=== PATIENT | female | born 1990 | race Caucasian/White ===

== ENCOUNTER 2025-03-23 13:55 | Emergency (ER) | payer OTHER, SELFPAY ==
[2025-03-23 13:56] VITALS: BP 186/105; PULSE 104; RESP 18; TEMP 37.2; O2SAT 100
[2025-03-23 13:58] VITALS: BMI 40.1
--- NOTE | 2025-03-23 15:09 | EDS_ITS ---
HPI History of Present Illness Chief Complaint: Abd Pain [facility] Medical History (Updated 03/23/25 @ 14:58 by Ambar Patel) Non-smoker Migraines Allergy/AdvReac Type Severity Reaction Status Date / Time No Known Allergies Allergy Verified 03/23/25 13:56 Social History Smoking Status: Never smoker EXAM Physical Exam Const Vital Signs: 03/23/25 13:56 03/23/25 15:55 Temperature 98.9 F Temperature Source Oral Pulse Rate 104 H 104 H Respiratory Rate 18 19 H Blood Pressure 186/105 H 152/95 H Blood Pressure Mean 132 114 Pulse Ox 100 98 Oxygen Delivery Method Room Air Room Air MDM MDM MDM Narrative Medical decision making narrative: HISTORY OF PRESENT ILLNESS: Chief complaint: Pelvic pain 34-year-old female here with left-sided pelvic pain. Past medical history of obesity, endometriosis, hematosalpinx,, GERD. 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 Villa. She states she typically have some abdominal discomfort however 2 hours ago she had sharp left lower quadrant abdominal pain. Her pain is not associated with fever, vomiting, changes in bowel or bladder habits. Denies any falls or trauma. Denies any prior abdominal surgeries. She is not concerned that she is . She denies any vaginal bleeding or discharge REVIEW OF SYSTEMS: Pertinent positives: Pelvic pain Pertinent negatives: Nausea, vomiting, fever PHYSICAL EXAM: Nursing triage notes reviewed, Vital signs reviewed Constitutional: please see mdm HENT: MMM Eyes: Pupils equal round and reactive to light, Extraocular muscles intact Neck: No stridor, no JVD, full neck ROM Lungs: Clear to auscultation, No wheezing or rales. No increased work of breathing, no conversational dyspnea, no accessory muscle use, no nasal flaring. No respiratory distress noted Heart: Regular rate and rhythm, No murmurs, No rubs and No gallops, 2+ distal pulses (radial, femoral, posterior tibial) in all extremities Abdomen: Soft, left lower quadrant TTP but no rigidity, rebound or guarding, no obvious peritoneal signs, no palpable pulsatile abdominal masses, no auscultated abdominal bruit : No CVAT Extremities: No edema Neuro: No new focal neurological deficits, cranial nerves II through XII intact, 5/5 strength in all present extremities. Intact sensation to light touch in all present extremities, 2+ reflexes bilateral patella tendons. Skin: No rash or lesions noted MEDICAL DECISION MAKING: Chief Complaint: please see HPI External records reviewed: Reviewed prior imaging studies: No recent advanced imaging of the abdomen or pelvis noted in [facility]. I reviewed [facility] as well. Per clinic send patient has a laparoscopic surgery for endometriosis and removal of fallopian tube we discussed on April [facility]. Reviewed MRI from October 2024 which showed the following MRI 11/05/2024 IMPRESSION: 1. Oval hemorrhagic lesion with incomplete septations in the left adnexa adjacent to the left ovary, most likely representing a hematosalpinx or less likely an endometrioma. 2. No MRI findings of deep pelvic endometriosis. Factors affecting care: Endometriosis, fallopian tube mass Social determinants of health: none History obtained from others: the patient's mother Consults: none [facility] Narrative: The patient was initially hypertensive with a blood pressure 186/105, tachycardic with a pulse of 104, she was afebrile and saturating 100% on room air. Exam with left lower quadrant TTP but no peritoneal signs. No CVA tenderness. I considered the following differential diagnosis: AAA, small bowel obstruction, abdominal perforation, appendicitis, pancreatitis, hepatobiliary pathology (acute cholecystitis), mesenteric ischemia, pathology (ie nephrolithiasis, pyelonephritis). I obtained a broad lab and imaging work to further determine if the patient was suffering from a life-threatening etiology. Initially treated patient IV fluids, Toradol and Zofran ALL IMAGES (IF OBTAINED) HAVE BEEN PERSONALLY REVIEWED AND INTERPRETED BY MYSELF. CBC with leukocytosis suggestive of systemic summation, no anemia thrombocytopenia noted BMP without evidence of significant electrolyte abnormalities, no anion gap, no acute kidney injury. Lactate is wnl indicating no end-organ hypoperfusion and/or hypoxia. Lipase is wnl indicating no pancreatic inflammation. Urinalysis shows no evidence of urinary inflammation suggestive of UTI Urine CT scan ab pelvis shows no acute process Pelvic ultrasound shows no ovarian torsion but shows known mass Repeat abdominal exam did not reveal any peritoneal signs. The patient is appropriate discharge home. Her symptoms are likely related to known pelvic mass. She has surgery scheduled on April 03. Offered home pain medication to the patient, home nausea medication to the patient. Instructed patient to call her [facility] the next available appointment. Strict return precautions were discussed. The patient and/or family, caregivers express understanding. The patient and/or family, caregivers agrees with the plan. Shared decision making: I will have a discussion with the patient and or visitors regarding risk/benefits of further testing or admission. They will be made aware of of the risk/benefits inherent in this decision they will be given the opportunity to voice understanding. Total critical care time today provided was at least 0 minutes. This excludes separately billable procedures. Critical care time (if documented) is secondary to the patient having high probability of clinically significant/life threatening deterioration in the patient's condition which required my urgent intervention. Impression: 1. Acute abdominal pain 2. Fallopian tube mass 3. History of endometriosis Dispo: Discharge This note was generated with [employer] dictation software. It may contain incorrect words, spelling, and punctuation that were not noted in review of the chart prior to signing. Lab Data Labs: Laboratory Results - last 24 hr 03/23/25 03/23/25 14:50 15:40 WBC 13.5 H RBC 5.05 Hgb 14.5 Hct 42.0 MCV 83.2 MCH 28.7 MCHC 34.5 RDW Std Deviation 36.2 RDW Coeff of Mari 11.9 Plt Count 328 MPV 9.3 Immature Gran % (Auto) 0.400 Neut % (Auto) 81.8 H Lymph % (Auto) 12.9 L Morton % (Auto) 4.1 Eos % (Auto) 0.4 Baso % (Auto) 0.4 Absolute Neuts (auto) 11.1 H Absolute Lymphs (auto) 1.74 Nucleated RBC % 0 Sodium 137 Potassium 3.6 Chloride 101 Carbon Dioxide 24.5 Anion Gap 12 BUN 11 Creatinine 0.70 Estim Creat Clear Calc 145.73 Est GFR (MDRD) Non-Af 116 BUN/Creatinine Ratio 16.1 Glucose 134 H Calcium 9.6 Total Bilirubin 0.41 AST 27 ALT 45 H Alkaline Phosphatase 75 Total Protein 8.0 Albumin 4.5 Globulin 3.5 Albumin/Globulin Ratio 1.3 Lipase 27 Urine Color Danelle Urine Clarity Sl. Cloudy Urine pH 5.0 Ur Specific Jackson 1.030 Urine Protein 15 H Urine Glucose (UA) Normal Urine Ketones 5 H Urine Occult Blood 10 H Urine Nitrite Negative Urine Bilirubin Negative Urine Urobilinogen Normal Ur Leukocyte Esterase 25 H Urine RBC 5-10 SEEN Urine WBC 10-25 SEEN Ur Squamous Epith Cells 50-100 SEEN Urine Bacteria 3+ Urine Mucus 3+ Urine Test Negative Radiography Diagnostic Testing: Clinical Impression(s) from Imaging Studies Pelvic/Transvag US 03/23/25 15:22 IMPRESSION: Dilated left fallopian tube likely related to known left fallopian tube mass. Large left ovarian cyst measuring 4.8 cm although this structure may be a fallopian tube cystic mass or segmental hydrosalpinx. Findings are difficult to delineate on this sonogram. The right ovary is within normal limits. Debris noted within the urinary bladder. Reading Location: [facility] Abdomen/Pelvis CT 03/23/25 16:30 IMPRESSION: No acute intra-abdominal process. Multicystic left ovary measuring up to 5.4 x 4.8 cm. Reading Location: [facility] Discharge Plan Triage Chief Complaint: Abd Pain ED Provider: Marc Murillo Dx/Rx/DC Orders Primary Care Provider: Eunice Alarcon Referrals: Eunice Alarcon MD [Primary Care Provider, Internal Medicine] Print Language: Beninese
--- NOTE | 2025-03-23 15:22 | US_ITS ---
PROCEDURE: PELVIC W/ TRANSVAGINAL 03/23/2025 REASON FOR EXAM: LEFT LOWER QUADRANT ABDOMINAL PAIN TECHNIQUE: Procedure Code: [id number] Modality: US Procedure: PELVIC W/ TRANSVAGINAL COMPARISON: None. FINDINGS: Uterus measures 9.5.5 x 4.0 cm. It is anteverted position. No uterine fibroids are noted. Endometrial stripe measures 6 mm. It is hyperechoic. Right ovary measures 2.3 x 2.1 x 2.1 cm and left ovary measures 3.9 x 3.2 x 2.7 cm. There is normal bilateral symmetrical blood flow within bilateral ovaries. Cysts within the left ovary measuring 4.8 x 4.4 x 3.2 cm. Dilated left fallopian tube likely related to known left fallopian tube mass. No significant free fluid within the cul-de-sac. Debris seen within the urinary bladder US/Pelvic w/ Transvaginal IMPRESSION: Dilated left fallopian tube likely related to known left fallopian tube mass. Large left ovarian cyst measuring 4.8 cm although this structure may be a fallopian tube cystic mass or segmental hydrosalpinx. Findings are difficult to delineate on this sonogram. The right ovary is within normal limits. Debris noted within the urinary bladder. Reading Location: [id number]
[2025-03-23] MEDS: 0.9% Normal Saline (500mL Bag) 500 ML 1000 ML IV (15:47)
[2025-03-23 15:53] LABS: Hematocrit 42.0 % (37-47); Hemoglobin 14.5 g/dL (12.0-15.0); Immature Granulocytes Count 0.060 X10^3/uL (0.0-0.0); Mean Corp Hgb Conc 34.5 g/dL (32-36); Mean Corpuscular Volume 83.2 fL (81-99); Mean Platelet Vol. 9.3 fl (6.2-12.0); NRBC Flagged by Analyzer 0 % (0-5); Platelet Count 328 K/mm3 (150-450); RBC Distribution Width CV 11.9 % (11.6-14.6); RBC Distribution Width SD 36.2 fl (35.1-43.9); Red Blood Count 5.05 M/mm3 (4.2-5.4); White Blood Count 13.5 K/mm3 (4.4-11.0)
[2025-03-23 15:54] LABS: Color, Urine Amber (Yellow); Glucose, Dipstick Normal (Normal); Ketone-Dipstick 5 mg/dl (Negative); Leukocyte Esterase-Dipstick 25 /ul (Negative); Nitrite-Dipstick Negative (Negative); Occult Blood-Urine 10 /ul (Negative); Protein-Dipstick 15 mg/dl (Negative); Specific Gravity, Urine 1.030 (1.002-1.030); Urine Bilirubin Dipstick Negative (Negative)
[2025-03-23 15:55] VITALS: BP 152/95; PULSE 104; RESP 19; O2SAT 98
[2025-03-23 16:11] LABS: Internal QC Validated? YES +Cl - CLEAR BKGD; Pregnancy, Urine Negative Negative
[2025-03-23 16:17] LABS: AST(SGOT) 27 U/L (<=31); Alanine Aminotransfer ALT/SGPT 45 U/L (<=34); Albumin, Serum 4.5 g/dL (3.5-5.0); Alkaline Phosphatase 75 U/L (35-104); Anion Gap 12 (7-18); BUN 11 mg/dL (4-19); BUN/Creat Ratio 16.1 RATIO (10-20); Calcium,Total 9.6 mg/dL (7.6-11.0); Carbon Dioxide 24.5 mmol/L (20.0-29.0); Chloride 101 mmol/L (96-106); Estimated Creatinine Clearance 145.73 ml/min (50-250); Globulin 3.5 g/dL (2.2-4.2); Glucose 134 mg/dL (70-99); Lipase 27 U/L (13-75); Potassium 3.6 mmol/L (3.5-5.1)
--- NOTE | 2025-03-23 16:30 | CT_ITS ---
PROCEDURE: ABDOMEN/PELVIS W IV CONT ONLY 03/23/2025 REASON FOR EXAM: LEFT LOWER QUADRANT ABDOMINAL PAIN TECHNIQUE: Procedure Code: [id number] Modality: CT Procedure: ABDOMEN/PELVIS W IV CONT ONLY Coronal and Sagittal reconstruction series were provided. CONTRAST: 100 mL of Isovue 370 One or more dose reduction techniques were used (e.g., Automated exposure control, adjustment of the mA and/or kV according to patient size, use of iterative reconstruction technique. RADIATION DOSE SUMMARY: DLP: 587 mGycm FINDINGS: Limited sections of the lung bases demonstrate no focal pulmonary mass or consolidations. The liver, spleen, pancreas, and both adrenal glands demonstrate no acute findings. Minimal hepatomegaly to 17.2 cm. The gallbladder is contracted. The stomach is unremarkable. The small bowel loops are not dilated. The appendix is normal. No colonic obstruction. There is no free air or significant free fluid. The kidneys are unremarkable. The urinary bladder is partially distended. The pelvic structures are intact. Multicystic left ovary measuring up to 5.4 x 4.8 cm. No significant lymphadenopathy. The aorta and IVC demonstrate no acute findings. Visualized osseous structures demonstrate no acute abnormality. CT/Abdomen/Pelvis W IV Cont ONLY IMPRESSION: No acute intra-abdominal process. Multicystic left ovary measuring up to 5.4 x 4.8 cm. Reading Location: [facility]
[2025-03-23 16:31] LABS: Red Blood Cells-Urine 5-10 SEEN /hpf (0-5)
[2025-03-23 16:32] LABS: Mucous, Urine 3+ /hpf (<or=2+); Squamous Epithelial Cells - UA 50-100 SEEN /hpf (5-10)
[2025-03-23 19:02] VITALS: BP 163/110; PULSE 96; RESP 20; TEMP 36.8; O2SAT 100
== END 2025-03-23 19:10 | disposition home or self-care (01) ==
PROVIDERS: Emergency Provider Emergency Medicine; PCP Internal Medicine; Visit Provider Emergency Medicine
DX: R10.22 Pelvic and perineal pain left side (principal); N83.292 Other ovarian cyst, left side
CPT/HCPCS: 74177; 76830; 76856; 80053; 81001; 81025; 83690; 85025; 96361; 96374; 96375; 99284; Q9967; A4216; J2405